=== PATIENT | male | born 2000 | race Caucasian/White ===

== ENCOUNTER 2021-03-30 08:24 | Emergency (ER) | payer OTHER ==
[2021-03-30] MEDS ORDERED: Albuterol Sulfate 2.5 mg/0.5 ml Neb ONE (09:01)
[2021-03-30] MEDS ORDERED: predniSONE 20 MG TAB ONE (09:01)
[2021-03-30] MEDS ORDERED: Sodium Chloride For Inhalation 0.9% 3 ML NEB ONE (10:35)
== END 2021-03-30 11:05 | disposition home or self-care (01) ==
LOC: NAV ERS 08:24
DX: J45.901 Unspecified asthma with (acute) exacerbation (principal); J98.2 Interstitial emphysema; R91.1 Solitary pulmonary nodule; F17.210 Nicotine dependence, cigarettes, uncomplicated
CPT/HCPCS: 71046; 71250; 93005; 94760; J7512; J7611